=== PATIENT | male | born 1995 | race African-American/Black ===

== ENCOUNTER 2017-04-15 18:15 | Emergency (ER) | payer OTHER ==
[~2017-04-15] VITALS: Ht 180.3 cm; Wt 67.2 kg
[2017-04-15 18:17] VITALS: BP 137/80; PULSE 92; RESP 15; TEMP 97.8; O2SAT 98
[2017-04-15] MEDS ORDERED: IBUPROFEN 600 MG TAB PO ONE (18:45)
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
--- NOTE | 2017-04-15 19:27 | RADRPT ---
EXAM DATE/TIME: 04/15/2017 18:57 [facility] COMPARISON: No previous studies available for comparison. INDICATIONS : Rib pain. MEDICAL HISTORY : None. SURGICAL HISTORY : None. ENCOUNTER: Initial ACUITY: 2 days PAIN SCORE: 6/10 LOCATION: Bilateral chest Right lateral rib cage FINDINGS: The lungs are clear without infiltrate, nodule, or mass. There is no appreciable pleural effusion fo r technique. Heart and mediastinum are unremarkable. CONCLUSION: No acute cardiopulmonary disease. Dayan Dale MD on April 15, 2017 at 19:25 Board Certified Radiologist. This report was verified electronically.
--- NOTE | 2017-04-15 19:48 | RADRPT ---
EXAM DATE/TIME: 04/15/2017 19:02 [facility] COMPARISON: No previous studies available for comparison. INDICATIONS : Pain. MEDICAL HISTORY : None. SURGICAL HISTORY : None. ENCOUNTER: Initial ACUITY: 2 days PAIN SCORE: 8/10 LOCATION: Right Posterior Shoulder FINDINGS: No definite fractures, or dislocations are identified. No definite lytic or sclerotic lesion is seen . The joint space is well maintained. CONCLUSION: Unremarkable study. Dayan Dale MD on April 15, 2017 at 19:46 Board Certified Radiologist. This report was verified electronically.
[2017-04-15] MEDS ORDERED: IBUP-232 PO (20:27)
== END 2017-04-15 20:50 | disposition home or self-care (01) ==
LOC: NEPD 18:15
DX: S16.1XXA Strain of muscle, fascia and tendon at neck level, initial encounter (principal); S43.401A Unspecified sprain of right shoulder joint, initial encounter; V03.10XA Pedestrian on foot injured in collision with car, pick-up truck or van in traffic accident, initial encounter; Y93.01 Activity, walking, marching and hiking; Y92.410 Unspecified street and highway as the place of occurrence of the external cause
CPT/HCPCS: 71020; 72125; 73030